=== PATIENT | male | born 1945 | race Two or more races ===

== ENCOUNTER 2020-08-28 07:42 | Emergency (ER) | payer SELFPAY ==
[~2020-08-28] VITALS: Ht 165.1 cm; Wt 75.7 kg
--- NOTE | 2020-08-28 07:58 | NUR ---
DR KEMP AT BEDSIDE FOR EVAL
[2020-08-28] MEDS ORDERED: IBUPROFEN 600 MG TABLET PO ONE (08:00)
[2020-08-28] MEDS ORDERED: IBUPROFEN 600 MG TABLET ONE (08:11)
--- NOTE | 2020-08-28 08:25 | NUR ---
BACK FROM CT MEDICATED ORDERED
--- NOTE | 2020-08-28 08:35 | NUR ---
[facility] UNIT [id number] AT BEDSIDE
[2020-08-28] MEDS ORDERED: IBUP-1957 PO (08:52)
[2020-08-28 09:00] VITALS: BP 142/80
== END 2020-08-28 09:13 | disposition home or self-care (01) ==
LOC: ER 07:44
DX: S13.8XXA Sprain of joints and ligaments of other parts of neck, initial encounter (principal); S00.83XA Contusion of other part of head, initial encounter; R51.9 Headache, unspecified; I10 Essential (primary) hypertension; Z60.2 Problems related to living alone; W18.39XA Other fall on same level, initial encounter; Y93.89 Activity, other specified; Y92.89 Other specified places as the place of occurrence of the external cause; Y99.8 Other external cause status
CPT/HCPCS: 70450-TC; 72125-TC